=== PATIENT | female | born 1990 | race Caucasian/White ===

== ENCOUNTER 2022-05-02 04:42 | Emergency (ER) | payer OTHER, BC ==
[2022-05-02] MEDS ORDERED: Ondansetron PF 4 MG/2 ML Vial ONE (05:02)
[2022-05-02] MEDS ORDERED: Ketorolac Tromethamine 30 MG/ML VIAL ONE (05:02)
[2022-05-02] MEDS ORDERED: Morphine 4 MG/ML VIAL ONE (05:02)
[2022-05-02 05:28] LABS: #Basophils 0.1 thou/uL (0.0-0.2); #Eosinphils 0.1 thou/uL (0.0-0.7); #Lymphocytes 2.1 thou/uL (1.20-3.40); #Monocytes 0.6 thou/uL (0.11-0.59); %Basophils 0.7 % (0.0-1.0); %Eosinophils 1.8 % (0.0-10.0); %Lymphocytes 26.7 % (21.0-51.0); %Monocytes 7.3 % (0.0-10.0); %Neutrophils 63.5 % (42.0-75.0); Mean Corpuscular HGB CONC 32.4 g/dL (32.0-36.0); Mean Corpuscular Hemoglobin 28.1 pg (27.0-31.0); Mean Corpuscular Volume 86.5 fL (78.0-98.0); Mean Platelet Volume 7.9 fL (7.4-10.4); Platelet Count 199 thou/uL (130-400); RBC Distribution Width 13.2 % (11.5-14.5); Red Blood Cell (RBC) Count 4.28 mill/uL (4.20-5.40); White Blood Cell (WBC) Count 7.9 thou/uL (4.8-10.8)
[2022-05-02 05:38] LABS: BHCG - Serum Negative (NEGATIVE); Pregs Control Background? CLEAR/WHITE (CLR/WHITE); Pregs Control Bar Appear? YES (CONTROL BAR)
[2022-05-02 05:51] LABS: ALT (SGPT) 13 U/L (8-55); AST (SGOT) 12 U/L (5-34); Alkaline Phosphatase 71 U/L (40-110); Anion Gap 14 mmol/L (10-20); BUN (Urea Nitrogen) 13 mg/dL (7.0-18.7); Bilirubin, Total 0.3 mg/dL (0.2-1.2); Calc. Creatinine Clearance 0 mL/min (70-130); Calcium 8.9 mg/dL (7.8-10.44); Carbon Dioxide 23 mmol/L (22-29); Chloride 105 mmol/L (98-107); Estimated GFR 116; Globulin 3.1 g/dL (2.4-3.5); Glucose 127 mg/dL (70-105); Lipase 30 U/L (8-78); Potassium 3.7 mmol/L (3.5-5.1); Protein, Total 7.1 g/dL (6.0-8.3); Sodium 138 mmol/L (136-145)
[2022-05-02 06:55] LABS: Bacteria/HPF None Seen HPF (None Seen); Bilirubin Negative (Negative); Blood, Urine Negative (Negative); Glucose, Urine (Dipstick) Normal (Negative); Ketone, Urine Negative (Negative); Leukocyte 25 Leu/uL (Negative); Nitrite Negative (Negative); Protein, Urine (Dipstick) 30 mg/dL (Neg-Trace); RBC/HPF 0-3 HPF (0-3); Squamous Epithelial Greater than 50 HPF (0-3); Urobilinogen Normal mg/dL (Less than 2); pH, Urine 5.5 (5.0-9.0)
[2022-05-02 06:57] LABS: Clarity Cloudy (Clear)
== END 2022-05-02 08:43 | disposition home or self-care (01) ==
LOC: ERS 04:42
DX: N13.2 Hydronephrosis with renal and ureteral calculous obstruction (principal)
CPT/HCPCS: 74176; 80053; 81003; 81015; 83690; 84703; 85025; 87086; 96361; 96374; 96375; J1885; J2270; J2405

== ENCOUNTER 2024-10-26 13:08 | Outpatient (CLI) | payer SELFPAY ==
[2024-10-26 14:00] LABS: #Basophils 0.04 10x3/uL (0.0-0.2); %Basophils 0.5 % (0.0-1.0); %Eosinophils 1.1 % (0.0-10.0); %Monocytes 4.4 % (0.0-10.0); %Neutrophils 65.6 % (42.0-75.0); Hematocrit 37.2 % (36.0-47.0); Hemoglobin 12.1 g/dL (12.0-16.0); Mean Corpuscular HGB CONC 32.5 g/dL (32.0-36.0); Mean Corpuscular Hemoglobin 27.4 pg (27.0-31.0); Mean Corpuscular Volume 84.4 fL (78.0-98.0); Mean Platelet Volume 9.2 fL (7.4-10.4); Platelet Count 328 10x3/uL (130-400); RBC Distribution Width 14.2 % (11.5-14.5); Red Blood Cell (RBC) Count 4.41 mill/uL (4.20-5.40)
[2024-10-26 14:13] LABS: Anion Gap 13 mmol/L (10-20); BUN (Urea Nitrogen) 13 mg/dL (7.0-18.7); Calc. Creatinine Clearance 0 mL/min (70-130); Calcium 9.1 mg/dL (7.8-10.44); Carbon Dioxide 24 mmol/L (22-29); Chloride 106 mmol/L (98-107); Estimated GFR 120; Glucose 86 mg/dL (70-105); Potassium 3.9 mmol/L (3.5-5.1); Sodium 139 mmol/L (136-145)
[2024-10-26 14:22] LABS: BHCG - Serum Negative (NEGATIVE); Pregs Control Background? CLEAR/WHITE (CLR/WHITE); Pregs Control Bar Appear? YES (CONTROL BAR)
== END 2024-10-26 13:09 | disposition home or self-care (01) ==
LOC: LABBT 13:08
PROVIDERS: ATTEND Orthopaedic Surgery
DX: Z01.812 Encounter for preprocedural laboratory examination (principal); S52.572A Other intraarticular fracture of lower end of left radius, initial encounter for closed fracture
CPT/HCPCS: 80048; 84703; 85025

== ENCOUNTER 2024-10-29 06:50 | Day surgery (SDC) | payer SELFPAY ==
[2024-10-26 13:34] VITALS: BMI 34.1
[2024-10-29] MEDS ORDERED: Bupivacaine 0.25% HCL 30 ML VIAL ONE (06:59)
[2024-10-29] MEDS ORDERED: CEFAZOLIN 2 GM VIAL ONE (07:40)
[2024-10-29] MEDS ORDERED: fentaNYL 50 mcg/mL 1 mL Vial ONE (07:49)
[2024-10-29] MEDS ORDERED: Midazolam HCl 2 mg/2 ml Vial ONE (07:50)
[2024-10-29] MEDS ORDERED: fentaNYL PF 100 MCG/2 ML SYRINGE ONE (07:58)
[2024-10-29] MEDS ORDERED: PROPOFOL 20 ML ONE (07:58)
[2024-10-29] MEDS ORDERED: Lidocaine 1% PF 5 ML VIAL ONE (07:59)
[2024-10-29] MEDS ORDERED: Dexamethasone 20 MG/5 ML VIAL ONE (07:59)
[2024-10-29] MEDS ORDERED: Ondansetron PF 4 MG/2 ML Vial ONE (07:59)
[2024-10-29] MEDS ORDERED: Lidocaine 2% 6 ML (Jelly) SYR ONE (08:00)
[2024-10-29] MEDS ORDERED: Ropivacaine 0.5% HCl/PF (150 MG/30 ML VIAL) ONE (08:40)
[2024-10-29] MEDS ORDERED: ePHEDrine Sulfate 50 MG/10 ML VIAL ONE (09:26)
== END 2024-10-29 12:40 | disposition home or self-care (01) ==
LOC: SDC 06:50
PROVIDERS: ATTEND Orthopaedic Surgery
PROC: 0PSJ04Z Reposition Left Radius with Internal Fixation Device, Open Approach (ICD-10-PCS; principal; 2024-10-29)
DX: S52.572A Other intraarticular fracture of lower end of left radius, initial encounter for closed fracture (principal); V29.99XA Rider (driver) (passenger) of other motorcycle injured in unspecified traffic accident, initial encounter
CPT/HCPCS: C1713; J0665; J1100; J2250; J2405; J2704; J2795; J3010